=== PATIENT | male | born 1980 | race African-American/Black ===

== ENCOUNTER 2016-09-06 08:07 | Emergency (ER) | payer OTHER ==
[2016-09-06 08:19] VITALS: BP 113/66; PULSE 78; TEMP 98.3; BMI 52.7
--- NOTE | 2016-09-06 09:09 | PDOC ---
History of Present Illness - General Chief Complaint: Sore Throat Stated Complaint: THROAT PAIN Time Seen by Provider: 09/06/16 08:35 History Source: Patient Exam Limitations: No Limitations - History of Present Illness Initial Comments: 09/06/16 09:07 c/o cough and runny nose x 2 weeks . Drainage from nose, states has sore throat pain that's worse in the mornings. Has used no medication but felt as length of time needed evaluation. 09/06/16 09:10 09/06/16 15:22 09/06/16 15:25 09/06/16 15:26 Timing/Duration: unsure Severity: mild Associated Symptoms: reports: denies symptoms, cough (nonproductive). denies: chest pain, fever/chills Past History - Travel Traveled outside of the country in the last 30 days: No Close contact w/someone who was outside of country & ill: No - Past Medical History Allergies/Adverse Reactions: Allergies Allergy/AdvReac Type Severity Reaction Status Date / Time Penicillins Allergy Verified 09/06/16 08:19 Home Medications: Ambulatory Orders Cetirizine HCl/Pseudoephedrine [Allergy+Congestion Relf-D Tab] 1 each PO DAILY # 30 tab 09/06/16 Asthma: Yes - Family Disease History Family Disease History: Heart Disease: Father, Mother, Respiratory: Brother (29 year old brother recent sudden from asthma) - Immunization History Immunization Up to Date: Yes - Psycho/Social/Smoking Cessation Hx Anxiety: No Suicidal Ideation: No Smoking History: Never smoked Have you smoked in the past 12 months: No Number of Cigarettes Smoked Daily: 0 Hx Alcohol Use: Yes Drug/Substance Use Hx: No Substance Use Type: Alcohol Review of Systems - Review of Systems Able to Perform ROS?: Yes Is the patient limited [place]an proficient: Yes Constitutional: Yes: Symptoms Reported, See HPI, Malaise. No: Fever HEENTM: Yes: Symptoms Reported, See HPI, Nose Congestion, Difficulty Swallowing Respiratory: Yes: Symptoms reported, See HPI, Cough (nonproductive) Integumentary: No: Symptoms Reported Neurological: Yes: See HPI. No: Symptoms reported, Headache All Other Systems: Reviewed and Negative *Physical Exam - Vital Signs Last Vital Signs Temp Pulse Resp BP Pulse Ox 98.3 F 78 18 113/66 98 09/06/16 08:15 09/06/16 08:15 09/06/16 08:15 09/06/16 08:15 09/06/16 08:15 - Physical Exam General Appearance: Yes: Nourished, Appropriately Dressed. No: Apparent Distress HEENT: positive: CLARA, TMs Normal, Pharynx Normal, Sinus Tenderness, Other ( postnasal drainage noted on posterior pharynx, no redness, swelling or exudate noted). negative: Tonsillar Erythema Neck: positive: Supple, Lymphadenopathy (R), Lymphadenopathy (L). negative: Tender Respiratory/Chest: positive: Lungs Clear, Normal Breath Sounds. negative: Wheezing Cardiovascular: positive: Regular Rhythm, Regular Rate Gastrointestinal/Abdominal: positive: Normal Bowel Sounds, Soft. negative: Tender Extremity: positive: Normal Capillary Refill, Normal Inspection, Normal Range of Motion Integumentary: positive: Normal Color, Dry, Warm Neurologic: positive: cv tech II-XII NML intact, Fully Oriented, Alert, Normal Mood/ Affect, Normal Response, Motor Strength 5/5 Medical Decision Making - Medical Decision Making 09/06/16 15:25 09/06/16 15:27 *DC/Admit/Observation/Transfer Diagnosis at time of Disposition: Allergic rhinitis Qualifiers: Chronicity: acute Allergic rhinitis trigger: other Allergic rhinitis seasonality: unspecified seasonality Qualified Code(s): J30.89 - Other allergic rhinitis - Discharge Dispostion Disposition: HOME Condition at time of disposition: Stable Admit: No - Prescriptions Prescriptions: Cetirizine HCl/Pseudoephedrine [Allergy+Congestion Relf-D Tab] 1 each PO DAILY # 30 tab - Patient Instructions Printed Discharge Instructions: DI for Allergic Rhinitis Additional Instructions: Rest, drink lots of fluids: Teas, water, soups Saltwater gargles. Consider humidifier in room at night Steamy showers/seem to face break up mucus Avoid contact with allergens, exposure to pollens, close windows on a windy day Lots of handwashing and good hygiene Continue [id number] medications for symptomatic relief- may use allergic eyedrops for itching I Continue antihistamines daily until pollen season is over; Zyrtec, Claritin, Gisella during the daytime and Benadryl at nighttime as will make sleepy Tylenol or Motrin for fever and pain Followup with private physician in one to 2 days as needed Consider following up with an rod hanger/music intern for skin testing and possible allergy shots Return to emergency department for worsened symptoms, fevers, dehydration - Post Discharge Activity Work/School Note: Back to Work
== END 2016-09-06 09:16 | disposition home or self-care (01) ==
LOC: JERFT 08:07
DX: J30.89 Other allergic rhinitis (principal)
CPT/HCPCS: 99281-25

== ENCOUNTER 2016-09-22 23:37 | Emergency (ER) | payer OTHER ==
[2016-09-23 00:19] VITALS: BP 120/85; PULSE 76; TEMP 98.3; BMI 54.4
[2016-09-23] MEDS ORDERED: predniSONE 20 MG TABLET (UD) PO ONE (01:12)
[2016-09-23] MEDS ORDERED: ALBUTEROL SO4 2.5/IPRATROPIUM 0.5 INH SOL 3 ML VIAL.NEB. NEB ONE ×2 (01:12→02:00)
--- NOTE | 2016-09-23 02:13 | PDOC ---
History of Present Illness - General History Source: Patient Exam Limitations: No Limitations - History of Present Illness Initial Comments: 09/23/16 02:14 The patient is a 35 year old male with a significant past medical history of asthma, who presents to the ED with SOB, and coughing that began today. Patient states he has had pneumonia in the past. He used his albuterol pump with some alleviation. He denies chest pain. He denies fever, chills, cough, nausea, vomiting, diarrhea. 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 <Kieran Alexis - Last Filed: 09/23/16 02:13> <Paty Almanza - Last Filed: 09/23/16 02:29> - General Chief Complaint: Respiratory Stated Complaint: DIFFICULTY BREATHING/CONGESTION Past History <Kieran Alexis - Last Filed: 09/23/16 02:13> - Past Medical History Asthma: Yes Other medical history: sleep apnea - Family Disease History Family Disease History: Heart Disease: Father, Mother, Respiratory: Brother (29 year old brother recent sudden from asthma) - Immunization History Immunization Up to Date: Yes - Psycho/Social/Smoking Cessation Hx Anxiety: No Suicidal Ideation: No Smoking History: Never smoked Have you smoked in the past 12 months: No Number of Cigarettes Smoked Daily: 0 Information on smoking cessation initiated: No Hx Alcohol Use: No Drug/Substance Use Hx: No Substance Use Type: None <Paty Almanza - Last Filed: 09/23/16 02:29> - Past Medical History Allergies/Adverse Reactions: Allergies Allergy/AdvReac Type Severity Reaction Status Date / Time Penicillins Allergy Verified 09/23/16 02:02 Home Medications: Ambulatory Orders Albuterol Sulfate Inhaler - [Ventolin HFA Inhaler -] 2 puff IH Q4H PRN #1 inhaler MDD 6 09/23/16 Cetirizine HCl/Pseudoephedrine [Allergy+Congestion Relf-D Tab] 1 each PO DAILY # 30 tab 09/23/16 Prednisone [Deltasone -] 40 mg PO DAILY #7 tablet 09/23/16 Respiratory Specific PMHX - Complaint Specific PMHX Angina: No Bronchitis: No Pneumonia: No Pulmonary Embolus: No TB (Tuberculosis): No <Paty Almanza - Last Filed: 09/23/16 02:29> Review of Systems - Review of Systems Able to Perform ROS?: Yes Comments:: 09/23/16 02:14 GENERAL/CONSTITUTIONAL: No fever or chills. No weakness. HEAD, EYES, EARS, NOSE AND THROAT: No change in vision. No ear pain or discharge. No sore throat. CARDIOVASCULAR: + SOB No chest pain. RESPIRATORY: + whezing. + cough No hemoptysis. GASTROINTESTINAL: No nausea, vomiting, diarrhea or constipation. GENITOURINARY: No dysuria, frequency, or change in urination. MUSCULOSKELETAL: No joint or muscle swelling or pain. No neck or back pain. SKIN: No rash NEUROLOGIC: No headache, vertigo, loss of consciousness, or change in strength/ sensation. ENDOCRINE: No increased thirst. No abnormal weight change. HEMATOLOGIC/LYMPHATIC: No anemia, easy bleeding, or history of blood clots. ALLERGIC/IMMUNOLOGIC: No hives or skin allergy. <Kieran Alexis - Last Filed: 09/23/16 02:13> *Physical Exam - Vital Signs Last Vital Signs Temp Pulse Resp BP Pulse Ox 98.3 F 76 18 120/85 99 09/23/16 00:17 09/23/16 00:17 09/23/16 00:17 09/23/16 00:17 09/23/16 00:17 - Physical Exam Comments: 09/23/16 02:14 GENERAL: Awake, alert, and fully oriented, in no acute distress HEAD: No signs of trauma EYES: PERRLA, EOMI, sclera anicteric, conjunctiva clear ENT: Auricles normal inspection, hearing grossly normal, nares patent, oropharynx clear without exudates. Moist mucosa NECK: Normal ROM, supple, no lymphadenopathy, JVD, or masses LUNGS: Wheezing. Breath sounds equal, clear to auscultation bilaterally. No crackles HEART: Regular rate and rhythm, normal S1 and S2, no murmurs, rubs or gallops ABDOMEN: Soft, nontender, normoactive bowel sounds. No guarding, no rebound. No masses EXTREMITIES: Normal range of motion, no edema. No clubbing or cyanosis. No cords, erythema, or tenderness NEUROLOGICAL: Cranial nerves II through XII grossly intact. Normal speech, normal gait SKIN: Warm, Dry, normal turgor, no rashes or lesions noted. <Kieran Alexis - Last Filed: 09/23/16 02:13> - Vital Signs Last Vital Signs Temp Pulse Resp BP Pulse Ox 98.3 F 76 18 120/85 99 09/23/16 00:17 09/23/16 00:17 09/23/16 00:17 09/23/16 00:17 09/23/16 00:17 <Paty Almanza - Last Filed: 09/23/16 02:29> ED Treatment Course - Medications Given in the ED: ED Medications Discontinued Medications Generic Name Dose Route Start Last Admin Trade Name Freq PRN Reason Stop Dose Admin Albuterol/Ipratropium 1 amp 09/23/16 01:12 09/23/16 01:00 Duoneb - NEB 09/23/16 01:13 1 amp ONCE ONE Administration Prednisone 60 mg 09/23/16 01:12 09/23/16 02:03 Deltasone - PO 09/23/16 01:13 60 mg ONCE ONE Administration <Kieran Alexis - Last Filed: 09/23/16 02:13> - RADIOLOGY Radiology Studies Ordered: Category Date Time Status CHEST PA & LAT [RAD] Stat Radiology 09/23/16 01:12 Taken - Medications Given in the ED: ED Medications Discontinued Medications Generic Name Dose Route Start Last Admin Trade Name Freq PRN Reason Stop Dose Admin Albuterol/Ipratropium 1 amp 09/23/16 01:12 09/23/16 01:00 Duoneb - NEB 09/23/16 01:13 1 amp ONCE ONE Administration Prednisone 60 mg 09/23/16 01:12 09/23/16 02:03 Deltasone - PO 09/23/16 01:13 60 mg ONCE ONE Administration <Paty Almanza - Last Filed: 09/23/16 02:29> Medical Decision Making - Medical Decision Making 09/23/16 02:07 35 yo male with h/o mod asthma here wtih c/o cough wheezing and sob since last few days. 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 using albuerol few times dialy. unsure if history of intubation but has been in the ICU many years ago. no current steroids. no other complaints.pt states he has had recurrent pneumonia, was concerns it was pneumonia. on exam pt awake alert obese, lungs wheezing bilaterally l abd soft NT ND. skin warm and dry. plan : xray nebs steroids reassess. 09/23/16 02:29 pt improved. dc with albuterol, steroids, cxr normal. rec allergy meds and advair. <Paty Almanza - Last Filed: 09/23/16 02:29> *DC/Admit/Observation/Transfer - Attestations Scribe Attestion: 09/23/16 02:15 Documentation prepared by Kieran Alexis, acting as medical staff assistant for Paty Almanza MD, . <Kieran Alexis - Last Filed: 09/23/16 02:13> - Discharge Dispostion Admit: No <Paty Almanza - Last Filed: 09/23/16 02:29> Diagnosis at time of Disposition: Asthma attack - Discharge Dispostion Disposition: HOME Condition at time of disposition: Improved - Prescriptions Prescriptions: Cetirizine HCl/Pseudoephedrine [Allergy+Congestion Relf-D Tab] 1 each PO DAILY # 30 tab Prednisone [Deltasone -] 40 mg PO DAILY #7 tablet Albuterol Sulfate Inhaler - [Ventolin HFA Inhaler -] 2 puff IH Q4H PRN #1 inhaler MDD 6 PRN Reason: Wheezing - Patient Instructions Printed Discharge Instructions: Asthma -- Adult Additional Instructions: you should take prednisone 40 mg daily x 7 days. follow up with your primary doctor. return for any worsening symptoms or concerns. take claritin or zyrtec daily to help prevent allergy symptoms which can trigger your asthma. use albuterol 2 puffs every 4 hours as needed. you should use advair 250/50 on puff daily during summer months or months when your asthma is bad.
== END 2016-09-23 02:46 | disposition home or self-care (01) ==
LOC: JER 23:37
PROC: 3E0F7GC Introduction of Other Therapeutic Substance into Respiratory Tract, Via Natural or Artificial Opening (ICD-10-PCS; principal; 2016-09-22)
DX: J45.901 Unspecified asthma with (acute) exacerbation (principal)
CPT/HCPCS: 71020-TC; 99282-25

== ENCOUNTER 2016-10-07 09:21 | Emergency (ER) | payer OTHER ==
[2016-10-07 09:30] VITALS: TEMP 98.1; BMI 52.7
--- NOTE | 2016-10-07 10:29 | PDOC ---
History of Present Illness - General Chief Complaint: Lightheaded Stated Complaint: FATIGUE Time Seen by Provider: 10/07/16 09:50 - History of Present Illness Initial Comments: 10/07/16 10:42 Patient is a 35 year old male with a history of asthma and sleep apnea who presents with a chief complaint of fatigue and weakness. Patient states that he normally feels fatigued in the morning due to his sleep apnea, however he felt more fatigued this morning than usual. Patient works as a post front office assistant and his bosses sent him to the ED to be evaluated. The patient states that he does not currently have a CPAP device. He also states that he had a recent echo which was normal due to occasional sensations of irregular heartbeats. He otherwise denies fevers, chills, nausea, vomiting, chest pain, SOB, abdominal pain, changes with bowel movements or urination. Past History - Past Medical History Allergies/Adverse Reactions: Allergies Allergy/AdvReac Type Severity Reaction Status Date / Time Penicillins Allergy Verified 10/07/16 09:31 Home Medications: Ambulatory Orders Montelukast Na [Singulair -] 10 mg PO HS 10/07/16 Asthma: Yes - Family Disease History Family Disease History: Heart Disease: Father, Mother, Respiratory: Brother (29 year old brother recent sudden from asthma) - Immunization History Immunization Up to Date: Yes - Psycho/Social/Smoking Cessation Hx Anxiety: No Suicidal Ideation: No Smoking History: Never smoked Have you smoked in the past 12 months: No Number of Cigarettes Smoked Daily: 0 Hx Alcohol Use: No Drug/Substance Use Hx: No Substance Use Type: None Review of Systems - Review of Systems Constitutional: No: Chills, Fever HEENTM: No: Nose Congestion, Throat Swelling Respiratory: No: Cough, Shortness of Breath, Wheezing Cardiac (ROS): Yes: Irregular Heart Rate. No: Chest Pain, Lightheadedness, Palpitations ABD/GI: No: Blood Streaked Bowels, Constipated, Diarrhea, Nausea, Rectal Bleeding, Vomiting, Tarry Stools : No: Dysuria, Frequency, Hematuria Integumentary: No: Rash Neurological: No: Headache, Tingling *Physical Exam - Vital Signs Last Vital Signs Temp Pulse Resp BP Pulse Ox 98.1 F 67 16 137/66 98 10/07/16 09:27 10/07/16 09:27 10/07/16 09:27 10/07/16 09:27 10/07/16 09:27 - Physical Exam Comments: 10/07/16 10:59 General Appearance: Nourished Sleepy Male. No Apparent Distress HEENT: No Tonsillar Exudate, Tonsillar Erythema, Nasal Congestion Neck: Trachea midline. No Lymphadenopathy Respiratory/Chest: Lungs Clear, Normal Breath Sounds. No Crackles, Rales, Rhonchi, Wheezing Cardiovascular: Regular Rhythm, Regular Rate. No Murmur, Gallop/S3, Gallop/S4 Gastrointestinal/Abdominal: Normal Bowel Sounds, Soft. No Guarding, Rebound, Tenderness Extremity: Normal Capillary Refill Integumentary: Normal Color, Dry, Warm Neurologic: Fully Oriented, Alert, Normal Mood/Affect, Normal Response ED Treatment Course - LABORATORY CBC & Chemistry Diagram: 10/07/16 10:35 10/07/16 10:35 Medical Decision Making - Medical Decision Making 10/07/16 11:00 Patient is a 35 year old male with a history of asthma and sleep apnea who presents with fatigue. Differential includes anemia, hyperglycemia, arrhythmia , fatigue due to sleep apnea. Given the patient's history and benign physical exam, his symptoms are most likely due to fatigue caused by his sleep apnea. However we will obtain a cbc to evaluate for anemia and a cbc, EKG, and trop to evaluate for ACS, arrhythmia and hyperglycemia. 10/07/16 12:32 Patient's labs were all within normal limits. We discussed his lab results with him and encouraged him to follow up with his primary care provider. He was agreeable to the plan. *DC/Admit/Observation/Transfer Diagnosis at time of Disposition: Fatigue Qualifiers: Fatigue type: unspecified Qualified Code(s): R53.83 - Other fatigue - Discharge Dispostion Disposition: HOME Condition at time of disposition: Improved - Patient Instructions Printed Discharge Instructions: DI for Fatigue Additional Instructions: Please return to the ER if you experience any concerning or worsening symptoms. Please call to follow up with your primary care provider to discuss your ER visit. - Post Discharge Activity Work/School Note: Back to Work - Attestations Physician Attestion: 10/07/16 12:34 I, Dr. Juvenal Huffman, attest that this document has been prepared under my direction and personally reviewed by me in its entirety. I further attest, that it accurately reflects all work, treatment, procedures and medical decision -making performed by me.
--- NOTE | 2016-10-07 11:00 | PDOC ---
Attending Attestation - Resident Resident Name: Juvenal Huffman - ED Attending Attestation I have performed the following: I have examined & evaluated the patient, The case was reviewed & discussed with the resident, I agree w/resident's findings & plan, Exceptions are as noted - HPI HPI: 10/07/16 10:59 Agree with the resident's HPI as documented in the electronic medical record. - Physicial Exam PE: 10/07/16 11:00 Agree with the resident's physical examination as documented in the electronic medical record. - Medical Decision Making 10/07/16 11:00 35-year-old male with sleep apnea and asthma who presents to the emergency Department with complaints of generalized fatigue today with no other specific complaints. Differential diagnosis includes but is not limited to: Atypical presentation of ACS, electrolyte abnormality, dehydration, toxic/metabolic derangement, anemia. Plan: 1. EKG 2. Labs 3. Observe and reevaluate
[2016-10-07 11:34] LABS: BASOPHIL 0.2 % (0-2.0); EOSINOPHIL 0.7 % (0-4.5); MCHC 33.4 g/dl (32.0-35.9); MEAN CELL VOLUME 89.9 fl (80-96); MEAN PLT VOLUME 7.8 fl (7.5-11.1); NEUTROPHILS 80.2 % (42.8-82.8); PLATELET COUNT 301 K/MM3 (134-434); WHITE BLOOD COUNT 9.2 K/mm3 (4.0-10.0)
[2016-10-07 12:00] LABS: ALBUMIN 3.2 g/dl (3.4-5.0); ANION GAP 6 (8-16); BILIRUBIN,TOTAL 0.4 mg/dL (0.2-1.0); CALCIUM 8.4 mg/dL (8.5-10.1); CO2 30 mmol/L (21-32); CREATININE 0.7 mg/dL (0.7-1.3); GLUCOSE,RANDOM 97 mg/dL (74-106); SGOT/AST 19 U/L (15-37); SGPT/ALT 17 U/L (12-78); TOT PROT 6.9 g/dl (6.4-8.2)
[2016-10-07 12:03] LABS: ALK PHOS 114 U/L (45-117); TROPONIN I < 0.02 ng/ml (0.00-0.05)
--- NOTE | 2016-10-07 12:31 | EKG ---
Test Reason : Blood Pressure : / mmHG Vent. Rate : 080 BPM Atrial Rate : 080 BPM P-R Int : 162 ms QRS Dur : 086 ms QT Int : 416 ms P-R-T Axes : 046 -19 007 degrees QTc Int : 479 ms NORMAL SINUS RHYTHM WITH SINUS ARRHYTHMIA NORMAL ECG WHEN COMPARED WITH ECG OF 24-AUG-2015 14:52, VENT. RATE HAS INCREASED Confirmed by PER RUIZ MD ([id number]) on 10/07/2016 12:31:19 PM Referred By: Confirmed By:PER RUIZ MD
[2016-10-07 13:13] VITALS: BP 132/61; PULSE 78
== END 2016-10-07 13:19 | disposition home or self-care (01) ==
LOC: JER 09:21
DX: R53.83 Other fatigue (principal); G47.39 Other sleep apnea; J45.909 Unspecified asthma, uncomplicated
CPT/HCPCS: 36415; 80053; 82550; 82553; 84484; 85025; 93005; 93010; 99282-25